=== PATIENT | male | born 1950 | race Caucasian/White ===

== ENCOUNTER 2025-08-14 05:52 | Emergency (ER) | payer MEDICARE ==
[~2025-08-14] VITALS: Ht 170.2 cm; Wt 89.4 kg
[~2025-08-14 05:52] MED LIST: ASPI-1005 PO; CYAN250010 PO; FOLI1 PO; HYDR500C2 PO; LOSA-418 PO; NIFE10CA60 PO
--- NOTE | 2025-08-14 06:24 | ERN ---
General Chief Complaint: FOOT INJURY/PAIN Stated Complaint: R ANKLE PAIN Time Seen by MD: 06:15 History of Present Illness Initial Comments 75-year-old male with a history of gout comes in with a right ankle lateral malleolus redness and tenderness. It has been that way for several weeks and the patient has come in for an x-ray. Allergies: Coded Allergies: No Known Drug Allergies (Unverified Allergy, Unknown, 03/18/25) Home Meds Active Scripts Cyanocobalamin (Vitamin B-12) (Vitamin B12) 2,500 Mcg Tablet, 1000 MCG PO DAILY, #30 TAB Prov:ALAN GOMEZ MD 03/21/25 Nifedipine (Nifedipine) 10 Mg Cap, 10 MG PO AM, #30 CAP Prov:ALAN GOMEZ MD 03/21/25 Losartan Potassium (Cozaar) 50 Mg Tablet, 50 MG PO DAILY, #30 TAB 2 Refills Prov:ALAN GOMEZ MD 03/21/25 Hydroxyurea (Hydroxyurea) 500 Mg Capsule, 1000 MG PO Q12H, #60 CAP Prov:ALAN GOMEZ MD 03/21/25 Folic Acid (Folvite) 1 Mg Tab, 1 MG PO DAILY, #60 TAB Prov:ALAN GOMEZ MD 03/21/25 Aspirin (ASPIRIN 81MG CHEW TAB) 81 Mg Tab.chew, 81 MG PO DAILY, #60 TAB.CHEW Prov:ALAN GOMEZ MD 03/21/25 Past Medical History Past Medical History: Hypertension, Other Medical History Other: PROSTATE CA, POLYCYTHEMIA VERA Past Surgical History: None ROS Dictation Aside from the right ankle erythema mild swelling and tenderness on the lateral malleolus the review of systems is negative. Physical Exam General Appearance: (+) no apparent distress Extremities Comment Right lateral malleolus is erythematous tender especially anteriorly and wore. Patient can move his ankle in all directions. Distal neurovascular intact MDM Plain films ordered. X-rays are negative for fracture or bone spurs. There are mild arthritic changes but the joint itself seems to have an adequate joint space. ED Course Orders Procedure Category Date Status Time Ankle Comp 3vws Rt RAD 08/14/25 Taken 06:15 Vital Signs Date Time Temp Pulse Resp B/P (MAP) Pulse Ox O2 Delivery O2 Flow Rate FiO2 08/14/25 06:15 98.2 61 18 139/68 97 Room Air* 0 21 08/14/25 05:53 97.2 67 151/81 98 DX & DISP Disposition: Discharge Departure Impression: Primary Impression: Pseudogout of ankle Condition: Stable Additional Instructions: Our x-rays today show that the bones are not broken. There seems to be a good joint space between the fibula and the bones in the foot. I do not see bone spurs for chips of bone either. I do not know the cause of the redness on your lateral ankle bone. I recommend seeing station engineer. Referrals: SELF,REFERRAL (PCP) SOLOMON LEE MD Aug 14, 2025 06:24
[2025-08-14 07:07] VITALS: BP 139/77; PULSE 69; RESP 14; TEMP 98.3; O2SAT 98
--- NOTE | 2025-08-14 07:32 | HMCIMG ---
EXAM: CR right Ankle, 3 views. CLINICAL HISTORY: Chronic pain and swelling. COMPARISON: None provided. FINDINGS: No acute fracture or aggressive appearing osseous lesion. Mild degenerative changes in the tibiotalar and talofibular joints. Mild soft tissue edema around the ankle joint. No radiographic evidence of joint effusion. 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 Mild soft tissue edema around the ankle joint. /[place]
== END 2025-08-14 07:46 | disposition home or self-care (01) ==
LOC: EDH 05:52
DX: M11.271 Other chondrocalcinosis, right ankle and foot (principal); I10 Essential (primary) hypertension; Z79.82 Long term (current) use of aspirin; Z79.899 Other long term (current) drug therapy; Z85.46 Personal history of malignant neoplasm of prostate
CPT/HCPCS: 73610; 99283